=== PATIENT | male | born 1955 | race Caucasian/White ===

== ENCOUNTER 2018-06-18 09:52 | Emergency (ER) | payer OTHER ==
[2018-06-18 09:56] VITALS: BP 116/86; PULSE 97; TEMP 98.4; BMI 27.4
[2018-06-18] MEDS ORDERED: ALBUTEROL SO4 2.5/IPRATROPIUM 0.5 INH SOL 3 ML VIAL.NEB. NEB ONE ×2 (10:44→10:56)
--- NOTE | 2018-06-18 10:44 | PDOC ---
History of Present Illness - General Chief Complaint: Cold Symptoms Stated Complaint: COLD SYMPTOMS Time Seen by Provider: 06/18/18 10:23 History Source: Patient Exam Limitations: No Limitations - History of Present Illness Initial Comments: 06/18/18 10:42 63 yr male with c/o cough for 2 weeks not improving with proair inhlaer and took 6 days prednisone 2 weeks ago. denies fever or chills. history of asthma, HTN. Past History - Past Medical History Allergies/Adverse Reactions: Allergies Allergy/AdvReac Type Severity Reaction Status Date / Time No Known Allergies Allergy Verified 06/18/18 09:57 Home Medications: Ambulatory Orders Hydrochlorothiazide [Hctz -] 25 mg PO DAILY 10/04/15 Prednisone [Deltasone] 40 mg PO DAILY #10 tablet 06/18/18 Asthma: Yes COPD: No HTN: Yes (ON MEDS) - Surgical History Appendectomy: Yes - Family Disease History Family Disease History: Heart Disease: Father - Immunization History Immunization Up to Date: No - Suicide/Smoking/Psychosocial Hx Smoking Status: No Smoking History: Never smoked Have you smoked in the past 12 months: No Number of Cigarettes Smoked Daily: 0 Hx Alcohol Use: No Drug/Substance Use Hx: No Substance Use Type: None *Physical Exam - Vital Signs Last Vital Signs Temp Pulse Resp BP Pulse Ox 98.4 F 97 H 18 116/86 97 06/18/18 09:55 06/18/18 09:55 06/18/18 09:55 06/18/18 09:55 06/18/18 09:55 - Physical Exam General Appearance: Yes: Nourished HEENT: positive: EOMI, MANUEL Neck: positive: Supple. negative: Tender Respiratory/Chest: positive: Lungs Clear, Normal Breath Sounds. negative: Chest Tender, Rhonchi, Stridor, Wheezing Cardiovascular: positive: Regular Rhythm, Regular Rate Gastrointestinal/Abdominal: positive: Normal Bowel Sounds, Soft Musculoskeletal: positive: Normal Inspection Extremity: positive: Normal Capillary Refill, Normal Inspection, Normal Range of Motion Integumentary: positive: Normal Color, Dry, Warm Neurologic: positive: Fully Oriented, Alert, Normal Mood/Affect, Normal Response , Motor Strength 5/5 Heart Score/ECG Review - ECG Intrepretation Rhythm: Regular Rhythm - ECG Impressions Normal ECG: Yes Non-specific ST Elevation: No Ischemic Changes: No Medical Decision Making - Medical Decision Making 06/18/18 10:57 cc: cough 2 weeks not improving no fever no chills no SOB has chest tightness somewhat improved with inhaler will get EKG CXR duoneb now *DC/Admit/Observation/Transfer Diagnosis at time of Disposition: Asthma Qualifiers: Asthma severity: mild Asthma persistence: persistent Asthma complication type: uncomplicated Qualified Code(s): J45.30 - Mild persistent asthma, uncomplicated - Discharge Dispostion Disposition: HOME Condition at time of disposition: Good - Prescriptions Prescriptions: Prednisone [Deltasone] 40 mg PO DAILY #10 tablet - Referrals Referrals: Brady Rosales MD [Staff Physician] - - Patient Instructions Additional Instructions: follow with the gluing pressman Dr. Rosales for follow up take the prednisone as directed for 5 days use your inhaler for any wheezing or chest tightness - Post Discharge Activity
--- NOTE | 2018-06-19 15:39 | EKG ---
Test Reason : Blood Pressure : / mmHG Vent. Rate : 082 BPM Atrial Rate : 082 BPM P-R Int : 142 ms QRS Dur : 100 ms QT Int : 372 ms P-R-T Axes : -07 -08 017 degrees QTc Int : 434 ms NORMAL SINUS RHYTHM NORMAL ECG NO PREVIOUS ECGS AVAILABLE Confirmed by MD Nazario, Jian ([id number]) on 06/19/2018 3:39:20 PM Referred By: TONY Confirmed By:Jian Lange MD
== END 2018-06-18 11:39 | disposition home or self-care (01) ==
LOC: JERFT 09:52
PROC: 3E0F7GC Introduction of Other Therapeutic Substance into Respiratory Tract, Via Natural or Artificial Opening (ICD-10-PCS; principal; 2018-06-18)
DX: J45.30 Mild persistent asthma, uncomplicated (principal); I10 Essential (primary) hypertension; J45.909 Unspecified asthma, uncomplicated
CPT/HCPCS: 71046-TC-FY; 93005; 93010; 99281-25; J7620